=== PATIENT | male | born 2000 | race Caucasian/White ===

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

== ENCOUNTER 2022-02-27 11:13 | Emergency (ER) | payer OTHER, SELFPAY ==
--- NOTE | 2022-02-27 12:05 | EXP.UTC ---
Discharge Plan Disposition Patient Disposition: Home, Self-Care Condition: Good Prescriptions Prescriptions: New azithromycin [Zithromax] 250 mg tablet 250 mg PO UD DOSE PK Qty: 6 0RF Rx Instructions: Take two (2) tablets today, then one (1) tablet days #2 thru #5 benzonatate [benzonatate] 100 mg capsule 100 mg PO TIDP PRN (Reason: Cough) Qty: 30 0RF No Action fluticasone propionate 120 SPR/BOT bottle 1 spr NS DAILY Qty: 1 0RF Rx Instructions: each nostril daily methylprednisolone 4 MG tablet 4 mg PO DIRECTED Qty: 21 0RF Rx Instructions: Take as directed on package instructions hefwjburibozzfm-wlnsqutcu-VN 118 ML syrup 5 - 10 ml PO Q46H PRN (Reason: Cough) Qty: 200 0RF ondansetron 4 MG tablet,disintegrating 4 mg PO TIDP PRN (Reason: Vomiting) Qty: 10 0RF amoxicillin-pot clavulanate 1 EACH tablet 1 tab PO Q12H 7 Days Qty: 14 0RF Referrals Follow up/Referrals: Juan Messer MD [Primary Care Provider] - See instructions Activity Restrictions/Add. Instructions Additional Instructions/Restrictions: Drink plenty of fluids. Take tylenol or ibuprofen for pain or fever. Take the medications as directed. Follow up with your regular doctor. GO TO THE ER FOR ANY WORSENING SYMPTOMS Quarantine until you know the results of your covid-19 test. Notify your school or workplace of your results and follow their instructions regarding return to work/school. Clinical Impressions Clinical Impression: Pharyngitis, Sinusitis Stand Alone Forms Stand Alone Forms: Work/School Release Instructions Patient Instructions: Sinusitis, DI for Sinusitis, Preventing the Spread of Coronavirus Discharge Instructions Discharge ED Provider: Junior Cheung [facility] General Stated complaint: covid test work required Time Seen by Provider: 02/27/22 12:05 History of Present Illness Provider Complaint: He states that for the past 2 days he has had a sore throat and felt bad. He denies significant cough and chest congestion. He needs a covid-19 test for his employer. Related Data Previous Rx's Medication Instructions Recorded fluticasone propionate 50 1 spr NS DAILY ##1 08/10/20 mcg/actuation nasal spray,suspension amoxicillin 875 mg-potassium 1 tab PO Q12H 7 days #14 tabs 05/16/21 clavulanate 125 mg tablet bbistkhrmwvpdee-dqmqtanmvcuhkjb-DR 5 - 10 ml PO Q46H PRN Cough #200 mL 05/16/21 2 mg-30 mg-10 mg/5 mL oral syrup methylprednisolone 4 mg tablet 4 mg PO DIRECTED #21 tabs 05/16/21 ondansetron 4 mg disintegrating 4 mg PO TIDP PRN Vomiting #10 tabs 05/16/21 tablet azithromycin 250 mg tablet 250 mg PO UD DOSE PK #6 tabs 02/27/22 (Zithromax) benzonatate 100 mg capsule 100 mg PO TIDP PRN Cough #30 caps 02/27/22 Allergies Allergy/AdvReac Type Severity Reaction Status Date / Time No Known Allergies Allergy Verified 02/27/22 12:28 [facility] Social History Smoking Status: Never smoker second hand exposure: No alcohol intake: current substance use type: denies use current occupational status: employed Travel in the last 8 weeks: None household members: family housing: house current occupational exposures/hazards: No caffeine: Yes ROS Obtained: Yes All systems reviewed & no additional complaints except as documented Constitutional Constitutional: Reports chills and Reports fever(s) Eyes Eyes: Denies eye discharge ENT Ears, Nose, Mouth, and Throat: Reports as per HPI Cardiovascular Cardiovascular: Denies chest pain Respiratory Respiratory: Denies chest congestion and Reports cough Gastrointestinal Gastrointestingal: Reports nausea; Denies abdominal pain, constipation, cramping, diarrhea or vomiting Musculoskeletal Musculoskeletal: Denies arthralgias Integumentary/Breasts Skin/Breast: Denies rash Neurologic Neurologic: Denies paresthesias Physical Exam G
[2022-02-27 12:16] LABS: UTC Strep Screen (Rapid) Negative (Negative)
[2022-02-27 12:24] VITALS: BP 128/77; PULSE 62; RESP 18; TEMP 36.6; O2SAT 100; BMI 32.7
[2022-02-27 12:28] VITALS: BP 128/77; PULSE 62; RESP 18; TEMP 36.6
== END 2022-02-27 12:29 | disposition home or self-care (01) ==
PROVIDERS: Emergency Provider Nurse Practitioner Family; PCP Internal Medicine Adolescent Medicine
DX: U07.1 COVID-19 (principal); J02.9 Acute pharyngitis, unspecified; R50.9 Fever, unspecified; R11.2 Nausea with vomiting, unspecified; R05.9 Cough, unspecified; R09.89 Other specified symptoms and signs involving the circulatory and respiratory systems; Z79.51 Long term (current) use of inhaled steroids; Z79.52 Long term (current) use of systemic steroids; Z79.899 Other long term (current) drug therapy
CPT/HCPCS: 87880; 99213; C9803; G0463; U0003; U0005

== ENCOUNTER 2022-07-08 23:09 | Emergency (ER) | payer SELFPAY ==
--- NOTE | 2022-07-08 23:08 | ECG_ITS ---
APPROVED REPORT Exam: Resting ECG HR:87 bpm ECG Measurements Heart Rate [address] 155 P 54 QRSd 96 QRS 47 QT 345 T 22 QTc 389 Conclusion SINUS RHYTHM NORMAL ECG UNCONFIRMED REPORT Electronically signed by : Juan Messer MD 07/09/2022 15:50:54
[2022-07-08 23:12] VITALS: BP 139/81; PULSE 71; RESP 18; TEMP 36.6; O2SAT 98; BMI 33.3
--- NOTE | 2022-07-08 23:19 | XR_ITS ---
PROCEDURE INFORMATION: Exam: XR Chest Exam date and time: 07/08/2022 11:36 PM Age: 22 years old Clinical indication: Sternal or substernal pain; Additional info: Cp TECHNIQUE: Imaging protocol: Radiologic exam of the chest. Views: 2 views. COMPARISON: CR XR CHEST AP 07/03/2020 8:43 PM FINDINGS: Lungs: Unremarkable. No consolidation. Pleural spaces: Unremarkable. No pleural effusion. No pneumothorax. Heart/Mediastinum: Unremarkable. No cardiomegaly. Vasculature: Unremarkable. Bones/joints: Unremarkable. IMPRESSION: No acute findings.
[2022-07-08 23:36] LABS: Basophils # 0.2 K/mm3 (0-0.2); Basophils % 1.7 % (0.1-2.0); Eosinophils # 0.1 K/mm3 (0.0-0.4); Eosinophils % 0.9 % (0.1-12.0); Hematocrit 51.2 % (42.0-52.0); Hemoglobin 17.1 g/dL (14.1-18.0); Lymphocytes # 2.9 K/mm3 (0.7-4.5); Lymphocytes % 21.1 % (10-50); Mean Corpuscular HGB Conc 33.5 g/dL (31.8-35.4); Mean Corpuscular Hemoglobin 29.7 pg (27.0-31.2); Mean Corpuscular Volume 88.8 fl (80-94); Monocytes # 0.7 K/mm3 (0.1-1.0); Neutrophils # 9.6 K/mm3 (1.8-7.8); Neutrophils % 71.4 % (37.0-80.0); Platelet Count 274 K/mm3 (142-424); Red Blood Count 5.76 M/mm3 (4.60-6.20); Red Cell Distribution Width 12.9 % (11.5-17.5); White Blood Count 13.5 K/mm3 (4.5-13.0)
[2022-07-08 23:44] LABS: Amylase 64 U/L (30-110); Lipase 38 U/L (23-300)
--- NOTE | 2022-07-08 23:47 | PC.NURSE ---
Pt back from RAD
--- NOTE | 2022-07-08 23:52 | HMH.EDCP ---
Discharge Plan Disposition Patient Disposition: Home, Self-Care Prescriptions Prescriptions: New pantoprazole [Protonix] 40 mg tablet,delayed release (DR/EC) 40 mg PO DAILY Qty: 30 0RF Referrals Follow up/Referrals: Provider,Referral, MD [Primary Care Provider] - See instructions Clinical Impressions Clinical Impression: Atypical chest pain, GERD (gastroesophageal reflux disease) Instructions Patient Instructions: DI for Atypical Chest Pain, DI for Gastroesophageal Reflux Disease (GERD) Discharge ED Provider: Raymond (ED)Xu Chest Pain HPI General Chief Complaint: Chest Pain Stated Complaint: Chest Pain Time Seen by Provider: 07/08/22 23:53 Mode of Arrival: Ambulatory Source of Information: Patient, Spouse and Medical Record Limitations: No Limitations Description of Symptoms (Recalled from ER Triage Doc. by RN): Pt states that he has had throat dryness with increased difficulty swallowing for the last two days. Also c/o nausea/vomting since 1400 with chest pain since 2129. Pt states he has vomitted more than 10 times following eating a taco salad this afternoon. Chest pain is in the center of his chest. Denies any radiation. States that the pain is not worse with inspiration. History of Present Illness HPI narrative: pt over the last 2 days has diff swallowing w/o sore throat - today after eating had n/v with assoc mid sternal chest pain complaint: chest pain Onset (ago): hour(s) Duration: intermittent Activity at onset: during rest Pain location: epigastric Severity: moderate Quality: dull Pain radiation: none Risk Factors for CAD: Family Hx of CAD JUDY Score for Non-Stemi Age of Patient: <30 years old Heart Rate: 70-89 bpm Systolic Blood Pressure: 100-119 mmHg Serum Creatinine: 0.80-1.19 mg/dl CHF [place] Class: I-No CHF Other Risk Factors: None Non-Stemi Risk Score: 59 Risk Stratification: 1-108 = Low Risk Related Data Previous Rx's Medication Instructions Recorded pantoprazole 40 mg tablet,delayed 40 mg PO DAILY #30 tabs 07/09/22 release (Protonix) Allergies Allergy/AdvReac Type Severity Reaction Status Date / Time No Known Allergies Allergy Verified 02/27/22 12:28 [facility] Disclaimer: The information contained in this section may have been updated after the patient was seen, as this information can be updated by other users. Social History Smoking Status: Current every day smoker tobacco type: e-cigarettes second hand exposure: No alcohol intake: current substance use type: denies use current occupational status: employed Travel in the last 8 weeks: None household members: family housing: house current occupational exposures/hazards: No caffeine: Yes ROS Obtained: Yes All systems reviewed & no additional complaints except as documented Physical Exam General General appearance: alert Head Head exam: normocephalic Eye Eye exam: Present PERRL and EOMI ENT ENT exam: Present mucous membranes moist Neck Neck exam: Present trachea midline Respiratory Respiratory exam: Present normal lung sounds bilaterally; Absent respiratory distress Cardiovascular Cardiovascular exam: Present regular rate; Absent systolic murmur Abdominal Exam Abdominal exam: Present soft and tenderness; Absent guarding or rebound Abdominal tenderness: Present epigastrium and mild Extremities Exam Extremities exam: Present full ROM Neurological Exam Neurological exam: Present alert, oriented X3 and CN II-XII intact; Absent motor sensory deficit Psychiatric Psychiatric exam: Present normal affect Skin Skin exam: Absent rash Medical Decision Making Medical Records Medical records reviewed: Yes I reviewed the patient's medical records. Amos Inquiry Pt receiving controlled substance: No Vital Signs: 07/08/22 23:12 07/09/22 00:00 07/09/22 00:44 Temperature 98 F Temperature Source Oral Pulse Rate 71 66 P
[2022-07-08 23:59] LABS: Troponin I < 0.01 ng/ml (0.00-0.034)
[2022-07-09] VITALS: BP 111/73; PULSE 71; RESP 18; O2SAT 97
--- NOTE | 2022-07-09 00:01 | PC.NURSE ---
Dr. Andrade at
--- NOTE | 2022-07-09 00:05 | CT_ITS ---
PROCEDURE INFORMATION: Exam: CT Abdomen And Pelvis With Contrast Exam date and time: 07/09/2022 12:34 AM Age: 22 years old Clinical indication: Other: Difficulty swallowing; Abdominal pain; Additional info: Abdominal pain, difficulty swallowing TECHNIQUE: Imaging protocol: Computed tomography of the abdomen and pelvis with contrast. Radiation optimization: All CT scans at this facility use at least one of these dose optimization techniques: automated exposure control; mA and/or kV adjustment per patient size (includes targeted exams where dose is matched to clinical indication); or iterative reconstruction. Contrast material: ISOVUE; Contrast volume: 75 ml; Contrast route: IV; Other contrast: Oral, gastro , 15; REPORTING DATA: Count of CT and Cardiac NM exams in prior 12 months: This patient has received 0 known CTs and 0 known cardiac nuclear medicine studies in the 12 months prior to the current study. COMPARISON: CT ABDOMEN PELVIS W CON 07/03/2020 8:31 PM FINDINGS: Lungs: No acute finding. Diaphragm: A small hiatal hernia is present. Liver: Normal. No mass. Gallbladder and bile ducts: Normal. No calcified stones. No ductal dilation. Pancreas: Normal. No ductal dilation. Spleen: Normal. No splenomegaly. Adrenal glands: Normal. No mass. Kidneys and ureters: Normal. No hydronephrosis. Stomach and bowel: Unremarkable. No obstruction. No mucosal thickening. Appendix: No evidence of appendicitis. Intraperitoneal space: Unremarkable. No free air. No significant fluid collection. Vasculature: Unremarkable. No abdominal aortic aneurysm. Lymph nodes: Unremarkable. No enlarged lymph nodes. Urinary bladder: Unremarkable as visualized. Reproductive: Unremarkable as visualized. Bones/joints: Unremarkable. No acute fracture. Soft tissues: Small fat containing right inguinal hernia. IMPRESSION: 1. There is no acute finding within the abdomen or pelvis. 2. Small hiatal hernia and small right inguinal hernia are noted.
[2022-07-09 00:08] LABS: Chloride 101 mmol/L (98-107)
[2022-07-09 00:09] LABS: Potassium 3.4 mmoL/L (3.5-5.1); Sodium 140 mmol/L (136-145)
[2022-07-09 00:11] LABS: Alanine Aminotransferase 60 U/L (12-78); Aspartate Amino Transferase 40 U/L (17-59); Blood Urea Nitrogen 11 mg/dl (9-20); Creatinine Clearance Estimated 218 mL/min (50-200); Estimated Glomerular Filt Rate 108 ml/min (>60); GFR (African American) 130 ML/MIN (>60)
[2022-07-09 00:12] LABS: Albumin Level 4.9 g/dl (3.5-5.0); Albumin/Globulin Ratio 1.3 (1.1-1.8); Alkaline Phosphatase 95 U/L (38-126); Anion Gap 14.4 mEq/L (5-15); Bilirubin,Total 0.9 mg/dl (0.2-1.3); Carbon Dioxide 28 mmol/L (22.0-30.0); Globulin 3.9 g/dL (1.3-3.2); Glucose 93 mg/dl (74-100); Total Protein,Serum 8.8 g/dl (6.3-8.2)
[2022-07-09 00:44] VITALS: BP 101/67; PULSE 66; RESP 19; O2SAT 98
[2022-07-09 01:00] VITALS: BP 107/63; PULSE 63; RESP 21; O2SAT 97
[2022-07-09 01:30] VITALS: BP 105/59; PULSE 61; RESP 15; O2SAT 96
--- NOTE | 2022-07-09 01:32 | PC.NURSE ---
Rounded on pt. No needs or complaints voiced.
[2022-07-09 01:40] LABS: Microscopic, Urine URINE MICROSCOPIC (MICROSCOPIC)
[2022-07-09 01:41] LABS: Appearance,Urine CLEAR (Clear); Bilirubin,Urine Negative (Negative); Blood, Urine Negative (Negative); Color,Urine YELLOW (Yellow); Glucose,Urine (UA) Negative (Negative); Ketones,Urine Negative (Negative); Leukocyte Esterase,Urine Negative (Negative); Nitrate,Urine Negative (Negative); Protein,Urine Negative (Negative); Urobilinogen,Urine 0.2 EU/dl (0.2)
[2022-07-09 01:56] VITALS: BP 115/59; PULSE 60; RESP 16; TEMP 36.7; O2SAT 98
[2022-07-09 02:00] LABS: Bacteria,Urine Trace /lpf
== END 2022-07-09 02:20 | disposition home or self-care (01) ==
PROVIDERS: Emergency Provider Emergency Medicine; PCP Internal Medicine Adolescent Medicine
DX: R07.89 Other chest pain (principal); K21.9 Gastro-esophageal reflux disease without esophagitis; U07.0 Vaping-related disorder
CPT/HCPCS: 71046; 74177; 80053; 81001; 82150; 83690; 84484; 85025; 93005; 96361; 96374; 96375; 99285; J2405; Q9967

== ENCOUNTER 2022-07-17 15:37 | Emergency (ER) | payer SELFPAY ==
[2022-07-17 15:45] VITALS: BP 124/75; PULSE 61; RESP 19; TEMP 37.1; O2SAT 99; BMI 32.1
--- NOTE | 2022-07-17 16:30 | EXP.UTC ---
Discharge Plan Disposition Patient Disposition: Home, Self-Care Condition: Good Prescriptions Prescriptions: New amoxicillin 500 mg capsule 500 mg PO Q12H Qty: 20 0RF No Action pantoprazole [Protonix] 40 mg tablet,delayed release (DR/EC) 40 mg PO DAILY Referrals Follow up/Referrals: Juan Messer MD [Primary Care Provider] - See instructions Clinical Impressions Clinical Impression: Strep throat Instructions Patient Instructions: DI for Strep Throat Discharge ED Provider: Gabi Trimble [facility] General Stated complaint: sore throat Mode of Arrival: Ambulatory Source of Information: Patient Limitations: No Limitations Time Seen by Provider: 07/17/22 16:30 Description of Symptoms (Recalled from Triage Doc. by RN): PATIENT C/O SORE THROAT WITH MUCOUS X 1 WEEK HEENT Symptoms (Recalled from RN notes): Yes Resp Symptoms (Recalled from RN notes): No Skin Symptoms (Recalled from RN notes): No MS Symptoms (Recalled from RN notes): No Functional Status (Recalled from RN notes): WNL History of Present Illness Provider Complaint: pt relates that he has not been able to eat due to sore throat and upset stomach. He is on Protonix for GERD. Relates that he has had the symptoms for about a week. Related Data Home Medications Medication Instructions Recorded Confirmed pantoprazole 40 mg tablet,delayed 40 mg PO DAILY GERD 07/17/22 07/17/22 release (Protonix) Previous Rx's Medication Instructions Recorded amoxicillin 500 mg capsule 500 mg PO Q12H #20 caps 07/17/22 Allergies Allergy/AdvReac Type Severity Reaction Status Date / Time No Known Allergies Allergy Verified 02/27/22 12:28 Worker's Comp Is this a Worker's Comp case?: No PFSH [facility] Disclaimer: The information contained in this section may have been updated after the patient was seen, as this information can be updated by other users. Social History Smoking Status: Current every day smoker tobacco type: e-cigarettes second hand exposure: No alcohol intake: current substance use type: denies use current occupational status: employed Travel in the last 8 weeks: None household members: family housing: house current occupational exposures/hazards: No caffeine: Yes ROS Obtained: Yes All systems reviewed & no additional complaints except as documented Constitutional Constitutional: Reports system reviewed and no additional complaints, except as documented, Reports poor appetite and Reports malaise Eyes Eyes: Reports system reviewed and no additional complaints, except as documented ENT Ears, Nose, Mouth, and Throat: Reports system reviewed and no additional complaints, except as documented, Reports odynophagia and Reports sore throat Cardiovascular Cardiovascular: Reports system reviewed and no additional complaints, except as documented Respiratory Respiratory: Reports system reviewed and no additional complaints, except as documented Gastrointestinal Gastrointestingal: Reports system reviewed and no additional complaints, except as documented and odynophagia Genitourinary Male Genitourinary: Reports system reviewed and no additional complaints, except as documented Musculoskeletal Musculoskeletal: Reports system reviewed and no additional complaints, except as documented Integumentary/Breasts Skin/Breast: Reports system reviewed and no additional complaints, except as documented Neurologic Neurologic: Reports system reviewed and no additional complaints, except as documented Endocrine Endocrine: Reports system reviewed and no additional complaints, except as documented Hematologic/Lymphatic Henatologic/Lymphatic: Reports system reviewed and no additional complaints, except as documented Allergic/Immunologic Allergic/Immunologic: Reports system reviewed and no additional complaints, except as documented Physical Exam General General appearance: alert
[2022-07-17 16:31] VITALS: BP 124/75; PULSE 61; RESP 19; TEMP 37.1; O2SAT 99
[2022-07-17 16:31] LABS: UTC Strep Screen (Rapid) Positive (Negative)
== END 2022-07-17 16:45 | disposition home or self-care (01) ==
PROVIDERS: Emergency Provider Nurse Practitioner Family; PCP Internal Medicine Adolescent Medicine
DX: J02.0 Streptococcal pharyngitis (principal); K21.9 Gastro-esophageal reflux disease without esophagitis; F17.290 Nicotine dependence, other tobacco product, uncomplicated
CPT/HCPCS: 87880; 99212; 99214; G0463

== ENCOUNTER → 2022-09-28 07:46 | Outpatient (CLI) | payer OTHER, SELFPAY ==
--- NOTE | 2022-09-28 07:46 | FL_ITS ---
FINAL REPORT CLINICAL HISTORY: dysphagia, GERD Fluoro time: .48 FINDINGS: ESOPHAGRAM HISTORY: Abdominal pain, nausea. PROCEDURE: The patient ingested barium. Effervescent crystals were also administered. Spot and overhead films were obtained. FINDINGS: The esophagus is normal. There is no hiatal hernia. There is no gastroesophageal reflux. Peristalsis is normal. A 13 mm barium tablet passes through the esophagus without delay. IMPRESSION: Normal esophagram. Films reviewed , interpreted and dictated by Dr. Vidal Transcribed by Dandy Vega PA-C. Reviewed, Interpreted and Dictated by Hardik Vidal III, MD Transcribed by GIA Gates Authenticated and [facility]
== END ==
LOC: RAD 07:46
PROVIDERS: PCP Internal Medicine Adolescent Medicine; Visit Provider Surgery
DX: R13.10 Dysphagia, unspecified (principal)
CPT/HCPCS: 74220

== ENCOUNTER 2022-10-05 12:53 | Day surgery (SDC) | payer OTHER, SELFPAY ==
[2022-09-30 09:10] VITALS: BMI 30.5
[2022-10-05] VITALS (7 sets, daily range): BP systolic 106–145; BP diastolic 46–82; PULSE 50–75; RESP 16–18; TEMP 36.5–36.6; O2SAT 96–98
--- NOTE | 2022-10-05 13:06 | P.PN_ITS ---
[facility] Disclaimer: The information contained in this section may have been updated after the patient was seen, as this information can be updated by other users. Medical History Asthma Deviated septum History of COVID-19 History of gastroesophageal reflux (GERD) Strep throat Surgical History History of placement of ear tubes Hx of tonsillectomy S/P nasal septoplasty Family History Other No significant family history Social History Smoking Status: Former smoker second hand exposure: No alcohol intake: never substance use type: denies use current occupational status: employed Travel in the last 8 weeks: None housing: house current occupational exposures/hazards: No caffeine: Yes [facility] Anesthesia Checklist Patient Identification Patient Identification: Arm Band and Verbal (Name & ) Structural Data Admitted From: Home Planned Operative Procedure/s: EGD Consent for Planned Operative Procedure(s) Verified: Yes NPO Status Verified Time NPO: 00:00 Additional verifications Anesthesia Reactions: No Hx Blood Transfusions: No Blood Transfusion Reaction: No Airway Assessment C-Spine Mobility Assessed: Yes TMJ Mobility Assessed: Yes Dentition: Good Dentition Neurological Assessment Level of Consciousness: Awake Hx Seizures: No Numbness or tingling in extremities: No Anesthesia Plan Anesthesia Risk discussed: Yes Anesthesia Plan: Verified ASA Class: II Anesthesia Type: MAC
--- NOTE | 2022-10-05 13:14 | HMH.SCOPE ---
Procedure: Date: 10/05/22 Patient Date of :: 2000 Procedure Performed:: Esophagogastroduodenoscopy with biopsy Indications:: Gastroesophageal reflux Dysphagia Performing Provider:: Maksim Baker MD Referring Provider:: . Sedation:: Monitored anesthesia care Procedure:: After informed consent was obtained the patient was taken to the endoscopy suite. Sedation ensued after the patient was transferred to the left lateral decubitus position. Pulse, blood pressure, and oxygen saturation were monitored throughout the procedure. The endoscope was advanced beyond the duodenal bulb. Retroflexion within the gastric lumen was accomplished. The gastroscope was carefully removed and the patient was transferred to recovery in stable condition. Please see findings and specimens below for detail. Findings:: Mild bilious reflux Sliding hiatal hernia Small linear ulcerations at gastroesophageal junction Minimal distal gastritis Specimens:: Antral biopsy Recommendations:: Follow-up pathology Continue proton pump inhibition Likely repeat esophagogastroduodenoscopy in 6-8 weeks Complications:: No immediate Estimated blood obtained (mL): 1
== END 2022-10-05 14:40 | disposition home or self-care (01) ==
PROVIDERS: PCP Internal Medicine Adolescent Medicine; Visit Provider Surgery
PROC: 0DJ08ZZ Inspection of Upper Intestinal Tract, Via Natural or Artificial Opening Endoscopic (ICD-10-PCS; CPT 43235; principal; 2022-10-05 14:00)
DX: R13.10 Dysphagia, unspecified (principal); K21.9 Gastro-esophageal reflux disease without esophagitis; K31.9 Disease of stomach and duodenum, unspecified; K29.70 Gastritis, unspecified, without bleeding; K44.9 Diaphragmatic hernia without obstruction or gangrene
CPT/HCPCS: 43239

== ENCOUNTER → 2022-12-01 09:53 | Outpatient (CLI) | payer OTHER, SELFPAY | PROVIDERS: PCP Internal Medicine Adolescent Medicine; Visit Provider Nurse Practitioner Family | DX: Z11.1 Encounter for screening for respiratory tuberculosis (principal) | CPT/HCPCS: 86580 ==

== ENCOUNTER → 2022-12-07 12:22 | Outpatient (CLI) | payer OTHER, SELFPAY ==
[2022-12-07 13:24] VITALS: BMI 31.0
== END ==
PROVIDERS: PCP Internal Medicine Adolescent Medicine; Visit Provider Nurse Practitioner
DX: Z11.1 Encounter for screening for respiratory tuberculosis (principal)
CPT/HCPCS: 86580

== ENCOUNTER 2023-07-27 11:53 | Emergency (ER) | payer OTHER, SELFPAY ==
[2023-07-27 11:55] VITALS: BP 125/58; PULSE 63; RESP 16; TEMP 36.6; O2SAT 100; BMI 30.8
--- NOTE | 2023-07-27 12:12 | XR_ITS ---
FINAL REPORT CLINICAL HISTORY: Left knee pain with injury COMPARISON: 12/30/2021 FINDINGS: Three views of the left knee reveal no evidence of fracture or dislocation. The bony alignment is normal. The joint spaces are preserved. There is no evidence of joint effusion. No localized soft tissue abnormality is seen. IMPRESSION: No acute abnormality identified. Reviewed, Interpreted and Dictated by Hardik Vidal III, MD Transcribed by Phyllis Archibald Authenticated and [facility]
--- NOTE | 2023-07-27 12:20 | ED_ITS ---
Discharge Plan Disposition Patient Disposition: Home, Self-Care Chief Complaint: Extremity Injury, Lower Prescriptions Prescriptions: No Action pantoprazole [Protonix] 40 mg tablet,delayed release (DR/EC) 40 mg PO DAILY Qty: 90 3RF Referrals Follow up/Referrals: Juan Messer MD [Primary Care Provider] - See instructions Clarence Sarkar DO [Staff Physician] - See instructions Activity Restrictions/Add. Instructions Additional Instructions/Restrictions: Call your family doctor to establish care for this visit to the emergency department and schedule follow-up within 48 hours to ensure improvement. If you have any worsening of your condition or any other concerning signs or symptoms, return to the emergency department or your primary care doctor for further evaluation. Take Tylenol 1000 mg every 6 hours (4 times daily) and ibuprofen 400 mg every 6 hours (4 times daily) as needed with food and water to prevent GI upset and kidney damage. See Dr. Sarkar outpatient for further evaluation. Clinical Impressions Clinical Impression: Left knee sprain Qualifiers: Encounter type: initial encounter Involved ligament of knee: unspecified ligament Qualified Code(s): S83.92XA - Sprain of unspecified site of left knee, initial encounter Discharge ED Provider: Cruz Rhodes General Adult HPI General Chief complaint: Extremity Injury, Lower Stated complaint: WC Pain behind L knee, heardf pop Time Seen by Provider: 07/27/23 11:55 Mode of Arrival: Wheelchair Source of Information: Patient Limitations: No Limitations Description of Symptoms (Recalled from ER Triage Doc. by RN): c/o left knee pain states that he was pushing a life gate at work up when he felt a pop. has hx of injuries to this knee in the past. reports that he is able to put some pressure when walking. History of Present Illness HPI narrative: 23-year-old male history of partial ACL tear on the left side presenting with left knee injury. He was at work lifting a box when he felt an acute pop in his left knee. It is tender, he is able to bear weight, but is with significant pain. Mild pain at rest, moderate pain when ambulating. Has swelling and tenderness primarily in the posterior aspect of his knee laterally. Has not taken anything for the pain Please note that above description of symptoms, in this electronic medical record under categorization of recalled from ER triage doctor by RN are reflective of an initial nursing assessment, however, is not reflective of my full history and physical exam that was personally taken and clarified. Consequentially, this preceding description of symptoms, which may include the patient's categorized chief complaint in the EMR, do not reflect my personal clinical impression, and the ultimate description of history of present illness and patient stated complaints should be deferred to this section of the note. Unless stated otherwise or congruent with this section of the note, additional signs, symptoms, or incongruence should be interpreted as inaccurate with my clinical impression. Related Data Previous Rx's Medication Instructions Recorded pantoprazole 40 mg tablet,delayed 40 mg PO DAILY #90 tabs 10/05/22 release (Protonix) Allergies Allergy/AdvReac Type Severity Reaction Status Date / Time No Known Allergies Allergy Verified 10/13/22 14:35 [facility] Disclaimer: The information contained in this section may have been updated after the na nt was seen, as this information can be updated by other users. Medical History (Updated 07/27/23 @ 13:08 by Cruz Rhodes MD) Strep throat History of COVID-19 Asthma History of gastroesophageal reflux (GERD) Deviated septum Surgical History (Updated 10/13/22 @ 14:36 by KATLYN Day) History of esophagogastroduodenoscopy (EGD) History of placement of ear tubes Hx of tonsillectomy S/P nasal septoplasty Family History Other No significant family history Social History Smoking Status: Unknown if ever smoked second hand exposure: No alcohol intake: never substance use type: denies use current occupational status: employed Travel in the last 8 weeks: None housing: house current occupational exposures/hazards: No caffeine: Yes ROS Obtained: Yes All systems reviewed & no additional complaints except as documented Physical Exam General General appearance: alert and in no apparent distress Head Head exam: atraumatic and normocephalic Eye Eye exam: Present normal appearance, PERRL and EOMI ENT ENT exam: Present mucous membranes moist Neck Neck exam: Present normal inspection, full ROM and trachea midline Respiratory Respiratory exam: Absent respiratory distress, wheezes, stridor, accessory musc le use or prolonged expiratory phase Cardiovascular Cardiovascular exam: Present normal rhythm Abdominal Exam Abdominal exam: Present soft; Absent distention, tenderness, guarding, rebound or rigidity Extremities Exam Extremities exam: Present other (Tenderness posteriorly in popliteal region. Structurally intact and neurovascularly intact. Patient has full range of motion, but limited secondary to pain. No axial load tenderness); Absent edema Neurological Exam Neurological exam: Present alert, oriented X3, CN II-XII intact and normal gait; Absent motor sensory deficit Skin Skin exam: Present warm and dry; Absent diaphoresis or erythema Medical Decision Making Medical Records Medical records reviewed: Yes I reviewed the patient's medical records. Amos Inquiry Pt receiving controlled substance: No Amos was queried for this patient: No Vital Signs: 07/27/23 11:55 Temperature 97.8 F Temperature Source Oral Pulse Rate [Left Radial] 63 Respiratory Rate 16 Blood Pressure [Right Arm] 125/58 L Blood Pressure Mean [Right Arm] 80 Blood Pressure Source [Right Arm] Automatic Cuff Blood Pressure Position [Right Arm] Sitting 02 Sat by Pulse Oximetry 100 Oxygen Delivery Method Room Air Orders (Tests/Meds): ED MEDICATIONS Discontinued Medications Generic Name Dose Route Start Last Admin Trade Name Sachi PRN Reason Stop Dose Admin Acetaminophen 1,000 mg 07/27/23 12:20 07/27/23 12:29 Acetaminophen 500mg Tab PO 07/27/23 12:21 1,000 mg ONCE ONE Administration Ibuprofen 600 mg 07/27/23 12:20 07/27/23 12:29 Ibuprofen 600 Mg Tablet PO 07/27/23 12:21 600 mg ONCE ONE Administration ORDERS Category Date Time Status Knee XR left 3 views [XR knee LT 3V] Stat Exams 07/27/23 12:12 Taken POCUS Point of Care (ER Only) Stat Exams 07/27/23 12:22 Ordered Medical Decision Narrative: 23-year-old male history of partial ACL tear on the left side presenting with left knee injury. He was at work lifting a box when he felt an acute pop in his left knee. It is tender, he is able to bear weight, but is with significant pain. Mild pain at rest, moderate pain when ambulating. Has swelling and tenderness primarily in the posterior aspect of his knee laterally. Has not taken anything for the pain. History was obtained via conversation with patient. On arrival, patient hemodynamically stable, alert, oriented x4, appropriate, GCS 15, moving all extremities spontaneously, pupils equal and reactive to light. Full physical exam performed and significant for well-appearing male no acute distress. He does have tenderness of the posterior/lateral aspect of his knee. Mild swelling. Structurally intact and neurovascular intact. Differential includes sprain, strain, fracture, among others. Patient was given Tylenol Motrin p.o. for symptomatic management and correction of underlying abnormalities. Workup independently interpreted and significant for no acute bony abnormality of the left knee, but there is mild edema. See radiology read for full review of final results. Bedside [id number] ultrasound with intact LCL, MCL, medial and lateral meniscus. No evidence of vascular injury or significant knee effusion. Overall normal. On reevaluation, patient resting comfortably in chair at baseline. Given patient presentation, workup, history, this most likely represents a sprain of the left knee. Recommended follow-up with orthopedics, this information was provided. Because patient at baseline without signs or symptoms of clinical decompensation, deemed appropriate for discharge. Results were relayed to patient who voiced understanding and were agreeable to outpatient management and follow up. I discussed my clinical impression with patient and answered all questions. At this time, the evidence for any other entities in the differential is insufficient to warrant any further testing or ED observation. This was explained as well. Advisory was given that persistent or worsening s ymptoms require further evaluation. I confirmed the understanding of this discussion. Procedures Limited Ultrasound Indication:: Limited soft tissue ultrasound Indication: Left knee pain after injury Identified structures: Location: LCL, MCL, medial and lateral meniscus, knee joint, lower extremity vasculature Findings: Normal ultrasound of the left knee and popliteal vessels Impression: Normal left knee wound Images were saved to permanent archive The study was technically adequate Soft Tissue CPT Codes: CPT Neck: 87976-28 CPT Upper extremity: 85997-70 CPT Axilla: 94944-17 CPT Chest wall: 33508-58 CPT Breast: 09550-10-XI/LT (complete), 46721-38-WR/LT (limited), CPT Upper Back: 77443-18 CPT Lower Back: 14814-77 CPT Abdominal Wall: 77671-94 CPT Pelvic Wall: 73335-68 CPT Lower Extremity: 46862-42 CPT Other Soft Tissue: 28847-23 This study was performed by me, and I personally interpreted all images/videos. Based on my clinical judgement, these images were adequate and did not necessitate further imaging. Critical Care Critical Care Time Critical Care Time: No
[2023-07-27] MEDS: IBUPROFEN 600 MG TABLET PO (12:29)
[2023-07-27] MEDS: ACETAMINOPHEN 500MG TAB 1000 MG PO (12:29)
[2023-07-27 13:10] VITALS: BP 127/67; PULSE 59; RESP 18; TEMP 36.7; O2SAT 98
== END 2023-07-27 13:15 | disposition home or self-care (01) ==
PROVIDERS: Emergency Provider Emergency Medicine; PCP Internal Medicine Adolescent Medicine
DX: S83.92XA Sprain of unspecified site of left knee, initial encounter (principal); X50.0XXA Overexertion from strenuous movement or load, initial encounter; Y99.0 Civilian activity done for income or pay; J45.909 Unspecified asthma, uncomplicated
CPT/HCPCS: 73562; 99284

== ENCOUNTER 2023-09-19 14:15 | Emergency (ER) | payer SELFPAY ==
[2023-09-19 14:35] VITALS: BP 107/68; PULSE 71; RESP 18; TEMP 36.9; O2SAT 100; BMI 29.5
--- NOTE | 2023-09-19 14:38 | EXP.UTC ---
Discharge Plan Disposition Patient Disposition: Home, Self-Care Condition: Good Prescriptions Prescriptions: New amoxicillin 875 mg tablet 875 mg PO Q12H Qty: 20 0RF [id number] [Bromfed DM] 2-30-10 mg/5 mL Syrup 5 ml PO Q6H PRN (Reason: Cough) Qty: 240 0RF ondansetron 4 mg Tablet,Disintegrating 4 mg PO Q8H PRN (Reason: Nausea) Qty: 8 0RF No Action escitalopram oxalate 10 mg tablet 10 mg PO DAILY Patient Comments: TAKE ONE TABLET BY MOUTH EVERY DAY pantoprazole [Protonix] 40 mg tablet,delayed release (DR/EC) 40 mg PO DAILY Qty: 90 3RF Referrals Follow up/Referrals: Juan Messer MD [Primary Care Provider] - See instructions Activity Restrictions/Add. Instructions Additional Instructions/Restrictions: Drink plenty of fluids. Take tylenol or ibuprofen for pain or fever. Take the medications as directed. Follow up with your regular doctor. GO TO THE ER FOR ANY WORSENING SYMPTOMS Throw your tooth brush away and get a new one. Clinical Impressions Clinical Impression: Strep throat, Exposure to 2019 novel coronavirus Stand Alone Forms Stand Alone Forms: Work/School Release Instructions Patient Instructions: Strep Throat, DI for Strep Throat Discharge ED Provider: Junior Cheung [facility] General Stated complaint: sore throat, vomiting, headache Time Seen by Provider: 09/19/23 14:37 History of Present Illness Provider Complaint: He states that for the past 2 days he has had malaise, body aches, sore throat, nonproductive cough and headache. Related Data Home Medications Medication Instructions Recorded Confirmed escitalopram oxalate 10 mg tablet 10 mg PO DAILY 09/19/23 09/19/23 Previous Rx's Medication Instructions Recorded pantoprazole 40 mg tablet,delayed 40 mg PO DAILY #90 tabs 10/05/22 release (Protonix) amoxicillin 875 mg tablet 875 mg PO Q12H #20 tabs 09/19/23 [id number]-YV 5 ml PO Q6H PRN Cough #240 mL 09/19/23 2 mg-30 mg-10 mg/5 mL oral syrup (Bromfed DM) ondansetron 4 mg disintegrating 4 mg PO Q8H PRN Nausea #8 tabs 09/19/23 tablet Allergies Allergy/AdvReac Type Severity Reaction Status Date / Time No Known Allergies Allergy Verified 09/19/23 14:47 [facility] Disclaimer: The information contained in this section may have been updated after the patient was seen, as this information can be updated by other users. Medical History (Updated 09/19/23 @ 15:21 by Junior Cheung APRN) Strep throat History of COVID-19 Asthma History of gastroesophageal reflux (GERD) Deviated septum Surgical History History of esophagogastroduodenoscopy (EGD) History of placement of ear tubes Hx of tonsillectomy S/P nasal septoplasty Family History Other No significant family history Social History Smoking Status: Unknown if ever smoked second hand exposure: No alcohol intake: never substance use type: denies use current occupational status: employed Travel in the last 8 weeks: None housing: house current occupational exposures/hazards: No caffeine: Yes ROS Obtained: Yes All systems reviewed & no additional complaints except as documented Constitutional Constitutional: Reports chills and Reports fever(s) Eyes Eyes: Denies eye discharge ENT Ears, Nose, Mouth, and Throat: Reports as per HPI Cardiovascular Cardiovascular: Denies chest pain Respiratory Respiratory: Denies chest congestion and Reports cough Gastrointestinal Gastrointestingal: Reports nausea; Denies abdominal pain, constipation, cramping, diarrhea or vomiting Musculoskeletal Musculoskeletal: Denies arthralgias Integumentary/Breasts Skin/Breast: Denies rash Neurologic Neurologic: Denies paresthesias Physical Exam General General appearance: alert and in no apparent distress Head Head exam: atraumatic, normocephalic and normal inspection Eye Eye exam: Present normal appearance, PERRL and EOMI ENT ENT exam: Present mucous membranes moist and normal external ear exam Expanded ENT Exam TM/Canal exam: Bilateral TM: erythema and bulging Nose exam: Absent sinus tenderness Mouth exam: Present normal external inspection; Absent drooling Teeth exam: Present normal inspection Throat exam: Present tonsillar erythema, tonsillomegaly and tonsillar exudate Neck Neck exam: Present normal inspection, full ROM and trachea midline; Absent tenderness, meningismus or lymphadenopathy Chest Chest inspection: Present normal inspection and symmetric chest wall rise; Absent tenderness Respiratory Respiratory exam: Present normal lung sounds bilaterally; Absent respiratory distress, wheezes, stridor or accessory muscle use Cardiovascular Cardiovascular exam: Present regular rate and normal rhythm; Absent systolic murmur or diastolic murmur Abdominal Exam Abdominal exam: Present soft and normal bowel sounds; Absent distention, tenderness, guarding, rebound or rigidity Extremities Exam Extremities exam: Present normal inspection and normal capillary refill; Absent calf tenderness Back Exam Back exam: Present normal inspection and full ROM; Absent tenderness, CVA tenderness (R) or CVA tenderness (L) Neurological Exam Neurological exam: Present alert, oriented X3 and CN II-XII intact Psychiatric Psychiatric exam: Present normal affect and normal mood Skin Skin exam: Present warm, dry, intact and normal color Medical Decision Making Medical Records Medical records reviewed: No I reviewed the patient's medical records. Amos Inquiry Pt receiving controlled substance: No Lab Data Lab results reviewed: Yes I reviewed the patient's lab results.
[2023-09-19 14:41] LABS: UTC Strep Screen (Rapid) Positive (Negative)
--- NOTE | 2023-09-19 15:29 | PC.NURSE ---
Sent rapid to lab via tube system
[2023-09-19 15:31] LABS: Influenza A, PCR Not Detected (NotDetected); Influenza B, PCR Not Detected (NotDetected)
[2023-09-19 15:34] VITALS: BP 107/68; PULSE 71; RESP 18; TEMP 36.9; O2SAT 100
[2023-09-19 16:07] LABS: Coronavirus 19, PCR Detected (NotDetected)
== END 2023-09-19 15:33 | disposition home or self-care (01) ==
PROVIDERS: Emergency Provider Nurse Practitioner Family; PCP Internal Medicine Adolescent Medicine
DX: U07.1 COVID-19 (principal); J02.0 Streptococcal pharyngitis; R07.0 Pain in throat; R51.9 Headache, unspecified; R05.9 Cough, unspecified; R53.81 Other malaise
CPT/HCPCS: 87636; 87880; 99212; 99214; G0463

== ENCOUNTER 2023-11-24 10:11 | Emergency (ER) | payer SELFPAY ==
[2023-11-24 10:20] VITALS: BP 119/72; PULSE 80; RESP 18; TEMP 36.9; O2SAT 100; BMI 25.5
--- NOTE | 2023-11-24 10:27 | EXP.UTC ---
Discharge Plan Disposition Patient Disposition: Home, Self-Care Condition: Good Prescriptions Prescriptions: New methylprednisolone 4 mg Tablets,Dose Pack 4 mg PO DIRECTED 6 Days Qty: 21 0RF Rx Instructions: Take 1 pack as directed for 6 days [id number] [Bromfed DM] 2-30-10 mg/5 mL Syrup 5 ml PO Q6H PRN (Reason: Cough) Qty: 240 0RF amoxicillin-pot clavulanate 875-125 mg Tablet 1 tab PO Q12H Qty: 20 0RF No Action escitalopram oxalate 10 mg tablet 10 mg PO DAILY Patient Comments: TAKE ONE TABLET BY MOUTH EVERY DAY pantoprazole [Protonix] 40 mg tablet,delayed release (DR/EC) 40 mg PO DAILY Qty: 90 3RF Referrals Follow up/Referrals: Juan Messer MD [Primary Care Provider] - See instructions Activity Restrictions/Add. Instructions Additional Instructions/Restrictions: Drink plenty of fluids. Take tylenol or ibuprofen for pain or fever. Take the medications as directed. Follow up with your regular doctor. GO TO THE ER FOR ANY WORSENING SYMPTOMS Clinical Impressions Clinical Impression: Pharyngitis Stand Alone Forms Stand Alone Forms: Work/School Release Instructions Patient Instructions: Strep Throat, DI for Strep Throat Discharge ED Provider: Junior Cheung [facility] General Stated complaint: sore throat, fever, headache Time Seen by Provider: 11/24/23 10:19 Related Data Home Medications Medication Instructions Recorded Confirmed escitalopram oxalate 10 mg tablet 10 mg PO DAILY 09/19/23 11/24/23 Previous Rx's Medication Instructions Recorded pantoprazole 40 mg tablet,delayed 40 mg PO DAILY #90 tabs 10/05/22 release (Protonix) amoxicillin 875 mg-potassium 1 tab PO Q12H #20 tabs 11/24/23 clavulanate 125 mg tablet ufqawbstizadust-auzemqnjzhhctxh-TP 5 ml PO Q6H PRN Cough #240 mL 11/24/23 2 mg-30 mg-10 mg/5 mL oral syrup (Bromfed DM) methylprednisolone 4 mg tablets in 4 mg PO DIRECTED 6 days #21 tabs 11/24/23 a dose pack Allergies Allergy/AdvReac Type Severity Reaction Status Date / Time No Known Allergies Allergy Verified 09/19/23 14:47 [facility] Disclaimer: The information contained in this section may have been updated after the patient was seen, as this information can be updated by other users. Medical History (Updated 11/24/23 @ 11:20 by Junior Cheung APRN) H/O hiatal hernia Strep throat History of COVID-19 Asthma History of gastroesophageal reflux (GERD) Deviated septum Surgical History History of esophagogastroduodenoscopy (EGD) History of placement of ear tubes Hx of tonsillectomy S/P nasal septoplasty Family History Other No significant family history Social History Smoking Status: Unknown if ever smoked second hand exposure: No alcohol intake: never substance use type: denies use current occupational status: employed Travel in the last 8 weeks: None housing: house current occupational exposures/hazards: No caffeine: Yes ROS Obtained: Yes All systems reviewed & no additional complaints except as documented Constitutional Constitutional: Reports chills and Reports fever(s) Eyes Eyes: Denies eye discharge ENT Ears, Nose, Mouth, and Throat: Reports as per HPI Cardiovascular Cardiovascular: Denies chest pain Respiratory Respiratory: Denies chest congestion and Reports cough Gastrointestinal Gastrointestingal: Reports nausea; Denies abdominal pain, constipation, cramping, diarrhea or vomiting Musculoskeletal Musculoskeletal: Denies arthralgias Integumentary/Breasts Skin/Breast: Denies rash Neurologic Neurologic: Denies paresthesias Physical Exam General General appearance: alert and in no apparent distress Head Head exam: atraumatic, normocephalic and normal inspection Eye Eye exam: Present normal appearance, PERRL and EOMI ENT ENT exam: Present mucous membranes moist and normal external ear exam Expanded ENT Exam TM/Canal exam: Bilateral TM: erythema and bulging Nose exam: Absent sinus tenderness Mouth exam: Present normal external inspection; Absent drooling Teeth exam: Present normal inspection Throat exam: Present tonsillar erythema, tonsillomegaly and tonsillar exudate Neck Neck exam: Present normal inspection, full ROM and trachea midline; Absent tenderness, meningismus or lymphadenopathy Chest Chest inspection: Present normal inspection and symmetric chest wall rise; Absent tenderness Respiratory Respiratory exam: Present normal lung sounds bilaterally; Absent respiratory distress, wheezes, stridor or accessory muscle use Cardiovascular Cardiovascular exam: Present regular rate and normal rhythm; Absent systolic murmur or diastolic murmur Abdominal Exam Abdominal exam: Present soft and normal bowel sounds; Absent distention, tenderness, guarding, rebound or rigidity Extremities Exam Extremities exam: Present normal inspection and normal capillary refill; Absent calf tenderness Back Exam Back exam: Present normal inspection and full ROM; Absent tenderness, CVA tenderness (R) or CVA tenderness (L) Neurological Exam Neurological exam: Present alert, oriented X3 and CN II-XII intact Psychiatric Psychiatric exam: Present normal affect and normal mood Skin Skin exam: Present warm, dry, intact and normal color Medical Decision Making Medical Records Medical records reviewed: No I reviewed the patient's medical records. Amos Chappell Pt receiving controlled substance: No Lab Data Lab results reviewed: Yes I reviewed the patient's lab results.
[2023-11-24 10:34] LABS: UTC Strep Screen (Rapid) Negative (Negative)
[2023-11-24 11:17] VITALS: BP 119/72; PULSE 80; RESP 18; TEMP 36.9; O2SAT 100
[2023-11-24 11:29] LABS: Coronavirus 19, PCR Not Detected (NotDetected); Influenza A, PCR Not Detected (NotDetected); Influenza B, PCR Not Detected (NotDetected)
== END 2023-11-24 11:22 | disposition home or self-care (01) ==
PROVIDERS: Emergency Provider Nurse Practitioner Family; PCP Internal Medicine Adolescent Medicine
DX: J02.9 Acute pharyngitis, unspecified (principal); R51.9 Headache, unspecified; R50.9 Fever, unspecified
CPT/HCPCS: 87636; 87880; 99212; 99214; G0463